=== PATIENT | male | born 1955 | race Caucasian/White ===

== ENCOUNTER 2021-12-14 04:36 | Emergency (ER) | payer OTHER ==
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
[2021-12-14] MEDS ORDERED: methylPREDNISolone 40 MG/ML (Solu-MEDROL) VIAL IV ONE (05:00)
[2021-12-14 05:32] LABS: BASOPHILS % (AUTO) 0 % (0-10); EOSINOPHILS # (AUTO) 0.1 10^3/uL (0.0-0.3); EOSINOPHILS % (AUTO) 2 % (0-10); HEMATOCRIT 36 % (40-54); LYMPHOCYTES # (AUTO) 0.9 10^3/uL (1.0-4.0); LYMPHOCYTES % (AUTO) 11 % (12-44); MEAN CORPUSCULAR HEMOGLOBIN 29 pg (25-34); MEAN CORPUSCULAR HGB CONC 31 g/dL (32-36); MEAN CORPUSCULAR VOLUME 94 fL (80-99); MEAN PLATELET VOLUME 9.4 fL (9.0-12.2); MONOCYTES # (AUTO) 0.8 10^3/uL (0.0-1.0); MONOCYTES % (AUTO) 10 % (0-12); NEUTROPHILS # (AUTO) 6.2 10^3/uL (1.8-7.8); NEUTROPHILS % (AUTO) 76 % (42-75); PLATELET COUNT 227 10^3/uL (130-400); WHITE BLOOD COUNT 8.2 10^3/uL (4.3-11.0)
[2021-12-14 05:44] LABS: SMEAR SCAN COMMENT PLT'S OK
[2021-12-14 05:51] LABS: SODIUM 139 MMOL/L (135-145)
[2021-12-14 05:52] LABS: ALKALINE PHOSPHATASE 97 U/L (40-136); BILIRUBIN,TOTAL 0.5 MG/DL (0.1-1.0); BUN/CREATININE RATIO 18; CALCIUM 8.9 MG/DL (8.5-10.1); CARBON DIOXIDE 25 MMOL/L (21-32); CHLORIDE 105 MMOL/L (98-107); CREATININE SERUM 0.89 MG/DL (0.60-1.30); GFR ESTIMATED 93; GLUCOSE 105 MG/DL (70-105); MAGNESIUM 2.2 MG/DL (1.6-2.4); POTASSIUM 4.4 MMOL/L (3.6-5.0)
[2021-12-14 05:53] LABS: ALANINE AMINOTRANSFERASE 16 U/L (0-55); ALBUMIN 3.6 GM/DL (3.2-4.5); TOTAL PROTEIN 6.8 GM/DL (6.4-8.2)
[2021-12-14] MEDS ORDERED: FUROSEMIDE 40 MG/4 ML INJ (LASIX) IVP ONE (06:15)
[2021-12-14] MEDS ORDERED: HYDR25CA PO (06:26)
--- NOTE | 2021-12-14 06:28 | Diagnostic Imaging Report ---
EXAM: CHEST PA/LAT (2 VIEW) INDICATION: Shortness of breath. COMPARISON: None. FINDINGS: Sternotomy. AICD. Cardiomegaly. Diffuse prominence of the interstitium. Hyperinflation. Small right pleural effusion. No pneumothorax. No acute osseous findings. IMPRESSION: 1. Cardiomegaly. 2. Marked prominence of the interstitium throughout both lungs with COPD. This is at least partially chronic. Overlying interstitial edema or infectious process cannot be excluded. 3. Small right pleural effusion. Dictated by: Dictated on workstation # [id number]
[2021-12-14 07:02] VITALS: BP 165/97
== END 2021-12-14 07:03 | disposition home or self-care (01) ==
LOC: ER FS 04:43
DX: I50.9 Heart failure, unspecified (principal); J44.9 Chronic obstructive pulmonary disease, unspecified; Z99.81 Dependence on supplemental oxygen; Z28.310 Unvaccinated for COVID-19
CPT/HCPCS: 36415; 71046; 80053; 83735; 84484; 85025; 93041

== ENCOUNTER 2022-03-13 12:25 | Emergency (ER) | payer OTHER ==
[~2022-03-13] VITALS: Ht 177 cm; Wt 61.0 kg
[~2022-03-13 12:25] MED LIST: HYDR25CA PO
[2022-03-13] MEDS ORDERED: RT-ALBUTEROL/IPRATROPIUM 3 ML (DUONEB) VIAL INH STA (12:43)
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
[2022-03-13 12:51] LABS: BASOPHILS % (AUTO) 0 % (0-10); EOSINOPHILS % (AUTO) 1 % (0-10); HEMATOCRIT 41 % (40-54); HEMOGLOBIN 12.6 g/dL (13.3-17.7); LYMPHOCYTES # (AUTO) 0.7 10^3/uL (1.0-4.0); LYMPHOCYTES % (AUTO) 9 % (12-44); MEAN CORPUSCULAR HEMOGLOBIN 29 pg (25-34); MEAN CORPUSCULAR HGB CONC 31 g/dL (32-36); MEAN CORPUSCULAR VOLUME 94 fL (80-99); MEAN PLATELET VOLUME 9.6 fL (9.0-12.2); MONOCYTES # (AUTO) 0.7 10^3/uL (0.0-1.0); MONOCYTES % (AUTO) 10 % (0-12); NEUTROPHILS # (AUTO) 6.1 10^3/uL (1.8-7.8); NEUTROPHILS % (AUTO) 80 % (42-75); PLATELET COUNT 259 10^3/uL (130-400); WHITE BLOOD COUNT 7.6 10^3/uL (4.3-11.0)
[2022-03-13] MEDS ORDERED: ALPRAZolam 0.25 MG (XANAX) TAB PO STA (12:52)
[2022-03-13 13:08] VITALS: BP 179/113
[2022-03-13 13:08] LABS: PROTHROMBIN TIME PATIENT 13.6 SEC (12.2-14.7)
--- NOTE | 2022-03-13 13:08 | Diagnostic Imaging Report ---
EXAMINATION: Chest, one view. HISTORY: Shortness of breath. Right-sided chest pain. COMPARISON: 12/14/2021. FINDINGS: Stable cardiomegaly with post-CABG changes. There is stable left pectoral ICD. Small right-sided pleural effusion is seen with right basilar opacities. These findings are similar to the prior exam. No pneumothorax. IMPRESSION: 1. Small right-sided pleural effusion with right basilar opacities, similar to the prior exam. 2. Cardiomegaly. Dictated by: Dictated on workstation # [id number]
[2022-03-13 13:20] LABS: BILIRUBIN,TOTAL 0.8 MG/DL (0.1-1.0); CALCIUM 9.5 MG/DL (8.5-10.1); CREATININE SERUM 0.8 MG/DL (0.60-1.30); MAGNESIUM 2.3 MG/DL (1.6-2.4); POTASSIUM 4.2 MMOL/L (3.6-5.0)
[2022-03-13 13:21] LABS: ALBUMIN 4.2 GM/DL (3.2-4.5)
[2022-03-13] MEDS ORDERED: FUROSEMIDE 40 MG/4 ML INJ (LASIX) IVP STA (13:29)
[2022-03-13] MEDS ORDERED: LORA-404 PO (13:47)
[2022-03-13] MEDS ORDERED: IPRA3AMP31 IH (13:47)
== END 2022-03-13 13:51 | disposition home or self-care (01) ==
LOC: EDUNIT# 12:25 → ER FS 12:28
DX: I50.9 Heart failure, unspecified (principal); J44.1 Chronic obstructive pulmonary disease with (acute) exacerbation; F41.9 Anxiety disorder, unspecified; D64.9 Anemia, unspecified; F17.210 Nicotine dependence, cigarettes, uncomplicated
CPT/HCPCS: 36415; 71045; 80053; 83690; 83735; 83880; 84484; 85025; 85610; 85730; 93005; 93041; 94640